=== PATIENT | female | born 1935 ===

== ENCOUNTER → 2017-09-28 09:25 | Outpatient (CLI) | payer OTHER | END | disposition home or self-care (01) | LOC: LAB 09:25 | DX: C90.00 Multiple myeloma not having achieved remission (principal); D47.2 Monoclonal gammopathy; D51.1 Vitamin B12 deficiency anemia due to selective vitamin B12 malabsorption with proteinuria; D64.81 Anemia due to antineoplastic chemotherapy; D51.3 Other dietary vitamin B12 deficiency anemia; E03.8 Other specified hypothyroidism; E09.65 Drug or chemical induced diabetes mellitus with hyperglycemia; K29.40 Chronic atrophic gastritis without bleeding; K31.83 Achlorhydria; B96.81 Helicobacter pylori [H. pylori] as the cause of diseases classified elsewhere; I10 Essential (primary) hypertension; R73.01 Impaired fasting glucose; D50.8 Other iron deficiency anemias; D51.8 Other vitamin B12 deficiency anemias ==

== ENCOUNTER 2018-03-08 06:49 | Outpatient (CLI) | payer OTHER | END 2018-03-08 06:57 | disposition home or self-care (01) | LOC: LAB 06:49 | DX: C90.00 Multiple myeloma not having achieved remission (principal); D47.2 Monoclonal gammopathy; D51.1 Vitamin B12 deficiency anemia due to selective vitamin B12 malabsorption with proteinuria; D64.81 Anemia due to antineoplastic chemotherapy; D51.3 Other dietary vitamin B12 deficiency anemia; E03.8 Other specified hypothyroidism; E09.65 Drug or chemical induced diabetes mellitus with hyperglycemia; K29.40 Chronic atrophic gastritis without bleeding; K31.83 Achlorhydria; B96.81 Helicobacter pylori [H. pylori] as the cause of diseases classified elsewhere; I10 Essential (primary) hypertension; R73.01 Impaired fasting glucose; D50.8 Other iron deficiency anemias; D51.8 Other vitamin B12 deficiency anemias ==

== ENCOUNTER 2018-09-19 07:26 | Outpatient (CLI) | payer OTHER | END 2018-09-19 07:45 | disposition home or self-care (01) | LOC: LAB 07:26 | DX: C90.00 Multiple myeloma not having achieved remission (principal); D47.2 Monoclonal gammopathy; D51.1 Vitamin B12 deficiency anemia due to selective vitamin B12 malabsorption with proteinuria; D64.81 Anemia due to antineoplastic chemotherapy; D51.3 Other dietary vitamin B12 deficiency anemia; E03.8 Other specified hypothyroidism; E09.65 Drug or chemical induced diabetes mellitus with hyperglycemia; K29.40 Chronic atrophic gastritis without bleeding; K31.83 Achlorhydria; B96.81 Helicobacter pylori [H. pylori] as the cause of diseases classified elsewhere; I10 Essential (primary) hypertension; R73.01 Impaired fasting glucose; D50.8 Other iron deficiency anemias; D51.8 Other vitamin B12 deficiency anemias ==

== ENCOUNTER 2019-02-05 09:27 | Outpatient (CLI) | payer OTHER | END 2019-02-05 09:34 | disposition home or self-care (01) | LOC: LAB 09:27 | DX: C90.00 Multiple myeloma not having achieved remission (principal); D47.2 Monoclonal gammopathy; D51.1 Vitamin B12 deficiency anemia due to selective vitamin B12 malabsorption with proteinuria; D64.81 Anemia due to antineoplastic chemotherapy; D51.3 Other dietary vitamin B12 deficiency anemia; E03.8 Other specified hypothyroidism; E09.65 Drug or chemical induced diabetes mellitus with hyperglycemia; K29.40 Chronic atrophic gastritis without bleeding; K31.83 Achlorhydria; I10 Essential (primary) hypertension; D50.8 Other iron deficiency anemias; D51.8 Other vitamin B12 deficiency anemias ==

== ENCOUNTER 2019-07-15 09:20 | Outpatient (CLI) | payer OTHER | END 2019-07-15 09:25 | disposition home or self-care (01) | LOC: LAB 09:20 | DX: E03.8 Other specified hypothyroidism (principal); C90.00 Multiple myeloma not having achieved remission; D47.2 Monoclonal gammopathy; D51.1 Vitamin B12 deficiency anemia due to selective vitamin B12 malabsorption with proteinuria; D64.81 Anemia due to antineoplastic chemotherapy; D51.3 Other dietary vitamin B12 deficiency anemia; E09.65 Drug or chemical induced diabetes mellitus with hyperglycemia; K29.40 Chronic atrophic gastritis without bleeding; K31.83 Achlorhydria; B96.81 Helicobacter pylori [H. pylori] as the cause of diseases classified elsewhere; I10 Essential (primary) hypertension ==

== ENCOUNTER 2019-10-28 09:56 | Outpatient (CLI) | payer OTHER | END 2019-10-28 10:03 | disposition home or self-care (01) | LOC: LAB 09:56 | DX: D50.8 Other iron deficiency anemias (principal); I10 Essential (primary) hypertension; D51.8 Other vitamin B12 deficiency anemias; D47.2 Monoclonal gammopathy; C90.00 Multiple myeloma not having achieved remission; D51.1 Vitamin B12 deficiency anemia due to selective vitamin B12 malabsorption with proteinuria; D64.81 Anemia due to antineoplastic chemotherapy; D51.3 Other dietary vitamin B12 deficiency anemia; E03.8 Other specified hypothyroidism; E09.65 Drug or chemical induced diabetes mellitus with hyperglycemia; K29.40 Chronic atrophic gastritis without bleeding; K31.83 Achlorhydria; B96.81 Helicobacter pylori [H. pylori] as the cause of diseases classified elsewhere ==

== ENCOUNTER → 2020-05-12 11:15 | Outpatient (CLI) | payer OTHER | END | disposition home or self-care (01) | LOC: LAB 11:15 | PROVIDERS: ATTEND Internal Medicine Hematology & Oncology | DX: D50.8 Other iron deficiency anemias (principal); I10 Essential (primary) hypertension; D47.2 Monoclonal gammopathy; C90.00 Multiple myeloma not having achieved remission; D51.1 Vitamin B12 deficiency anemia due to selective vitamin B12 malabsorption with proteinuria; D64.81 Anemia due to antineoplastic chemotherapy; D51.3 Other dietary vitamin B12 deficiency anemia; E03.8 Other specified hypothyroidism; E09.65 Drug or chemical induced diabetes mellitus with hyperglycemia; K29.40 Chronic atrophic gastritis without bleeding; K31.83 Achlorhydria; B96.81 Helicobacter pylori [H. pylori] as the cause of diseases classified elsewhere ==

== ENCOUNTER 2020-10-12 10:08 | Outpatient (CLI) | payer OTHER | END 2020-10-12 10:15 | disposition home or self-care (01) | LOC: LAB 10:08 | PROVIDERS: ATTEND Internal Medicine Hematology & Oncology | DX: D50.8 Other iron deficiency anemias (principal); R74.02 Elevation of levels of lactic acid dehydrogenase [LDH]; K76.89 Other specified diseases of liver; D51.8 Other vitamin B12 deficiency anemias; D47.2 Monoclonal gammopathy; C90.00 Multiple myeloma not having achieved remission; D51.1 Vitamin B12 deficiency anemia due to selective vitamin B12 malabsorption with proteinuria; D64.81 Anemia due to antineoplastic chemotherapy; D51.3 Other dietary vitamin B12 deficiency anemia; E03.8 Other specified hypothyroidism; E09.65 Drug or chemical induced diabetes mellitus with hyperglycemia; K29.40 Chronic atrophic gastritis without bleeding; K31.83 Achlorhydria; B96.81 Helicobacter pylori [H. pylori] as the cause of diseases classified elsewhere; I10 Essential (primary) hypertension ==

== ENCOUNTER 2020-12-02 09:24 | Outpatient (CLI) | payer OTHER | END 2020-12-02 09:28 | disposition home or self-care (01) | LOC: LAB 09:24 | PROVIDERS: ATTEND Internal Medicine Hematology & Oncology | DX: C90.00 Multiple myeloma not having achieved remission (principal); D47.2 Monoclonal gammopathy; D51.1 Vitamin B12 deficiency anemia due to selective vitamin B12 malabsorption with proteinuria; D64.81 Anemia due to antineoplastic chemotherapy; D51.3 Other dietary vitamin B12 deficiency anemia; E03.8 Other specified hypothyroidism; E09.65 Drug or chemical induced diabetes mellitus with hyperglycemia; K29.40 Chronic atrophic gastritis without bleeding; K31.83 Achlorhydria; D50.8 Other iron deficiency anemias; R74.02 Elevation of levels of lactic acid dehydrogenase [LDH]; K76.89 Other specified diseases of liver; B96.81 Helicobacter pylori [H. pylori] as the cause of diseases classified elsewhere; I10 Essential (primary) hypertension ==

== ENCOUNTER → 2021-02-08 08:54 | Outpatient (CLI) | payer OTHER | END | disposition home or self-care (01) | LOC: LAB 08:54 | PROVIDERS: ATTEND Internal Medicine Hematology & Oncology | DX: D50.8 Other iron deficiency anemias (principal); I10 Essential (primary) hypertension; R74.02 Elevation of levels of lactic acid dehydrogenase [LDH]; K76.89 Other specified diseases of liver; D51.8 Other vitamin B12 deficiency anemias; D47.2 Monoclonal gammopathy; C90.00 Multiple myeloma not having achieved remission; D64.81 Anemia due to antineoplastic chemotherapy; D51.3 Other dietary vitamin B12 deficiency anemia; E03.8 Other specified hypothyroidism; E09.65 Drug or chemical induced diabetes mellitus with hyperglycemia; K29.40 Chronic atrophic gastritis without bleeding; K31.83 Achlorhydria; B96.81 Helicobacter pylori [H. pylori] as the cause of diseases classified elsewhere ==